=== PATIENT | male | born 1960 | race Caucasian/White ===

== ENCOUNTER 2016-10-02 12:57 | Inpatient (IN) | payer BC, OTHER ==
[~2016-10-02] VITALS: Ht 180.3 cm; Wt 77.1 kg
[2016-10-02] MEDS ORDERED: ONDANSETRON ODT 4 MG TAB.RAPDIS SL PRN (18:30)
[2016-10-02] MEDS ORDERED: ACETAMINOPHEN 325 MG TABLET PO PRN (18:30)
[2016-10-02] MEDS ORDERED: MIRALAX 17 GM POWD.PACK PO PRN (18:30)
[2016-10-02] MEDS ORDERED: ONDANSETRON 4 MG/2 ML VIAL IM PRN (18:30)
[2016-10-02] MEDS ORDERED: MAG HYDROX/AL HYDROX/SIMETH 30 ML LIQUID UDC PO PRN (18:30)
[2016-10-02] MEDS ORDERED: diphenhydrAMINE 50 MG CAPSULE PO PRN (18:30)
[2016-10-02] MEDS ORDERED: LORAZEPAM 2 MG/1 ML VIAL IM PRN (18:30)
[2016-10-02] MEDS ORDERED: HYDROXYZINE PAMOATE 25 MG CAPSULE PO PRN (18:30)
[2016-10-02] MEDS ORDERED: BUPRENORPHINE HCL 2 MG TAB.SUBL SL PRN (18:30)
[2016-10-02] MEDS ORDERED: LORAZEPAM 1 MG TABLET PO PRN ×2 (18:30)
[2016-10-02] MEDS ORDERED: CLONIDINE HCL 0.1 MG TABLET PO PRN (18:30)
[2016-10-02] MEDS ORDERED: LOPERAMIDE HCL 2 MG CAPSULE PO PRN ×2 (18:30)
[2016-10-02 19:00] VITALS: BP 127/71
--- NOTE | 2016-10-02 19:00 | NUR ---
PRE-ADMISSION NOTE VS: BP-127/71 T-97.9 P-107 R-18 PA-0/10 .SpO2 AT 98% IN RA. PATIENT ABLE TO ANSWERS QUESTION APPROPRIATELY. SPEECH IS CLEAR. AMBULATORY AND HAS STEADY GAIT. PATIENT STATES HES NOT ALLERGIC TO ANY MEDICATION OR FOOD. NO SEIZURE HISTORY. PATIENT STATES HES HERE FOR HEROIN IV, METH IV, ETOH , XANAX AND KLONOPIN. DISCUSSED UNIT POLICIES TO PATIENT , NARCOTIC DESTRUCTION, VS CHECK EVERY 4 HOURS AND SMOKING POLICIES. PATIENT VERBALIZED UNDERSTANDING. WILL CONTINUE ADMISSION ON 3RD FLOOR AT ROOM 310.
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
[2016-10-02 19:42] LABS: BASOPHILS # (AUTO) 0.1 K/uL (0.0-8.0); BASOPHILS % (AUTO) 0.6 % (0.0-2.0); EOSINOPHILS # (AUTO) 0.2 K/uL (0.0-0.7); EOSINOPHILS % (AUTO) 2.1 % (0.0-7.0); HEMATOCRIT 33.2 % (40-50); HEMOGLOBIN 10.2 G/DL (14.0-18.0); LYMPHOCYTES # (AUTO) 1.3 K/UL (0.8-4.8); LYMPHOCYTES % (AUTO) 14.1 % (20.5-51.5); MEAN CORPUSCULAR HEMOGLOBIN 20.5 UUG (27.0-31.0); MEAN CORPUSCULAR HGB CONC 31 g/dL (32.0-37.0); MEAN CORPUSCULAR VOLUME 66.8 FL (82.0-92.0); MONOCYTES % (AUTO) 11.7 % (0.0-11.0); NEUTROPHILS # (AUTO) 6.3 K/UL (1.8-8.9); NEUTROPHILS % (AUTO) 71.5 % (38.5-71.5); PLATELET COUNT (AUTO) 479 K/UL (150-450); RED BLOOD CELL COUNT(AUTO) 4.98 MIL/UL (4.7-6.1); WHITE BLOOD COUNT (AUTO) 8.9 K/UL (4.0-11.2)
[2016-10-02 19:47] LABS: ALANINE AMINOTRANSFERASE 24 U/L (16-63); ALKALINE PHOSPHATASE 84 U/L (50-136); AMYLASE 34 U/L (25-115); ASPARTATE AMINOTRANSFERASE 24 U/L (15-37); BILIRUBIN,TOTAL 0.4 mg/dL (0.2-1.0); CARBON DIOXIDE 30 mmol/L (21-32); CHLORIDE 98 mmol/L (98-107); CREATININE 1.1 mg/dL (0.6-1.3); GLUCOSE 104 mg/dL (74-106); MAGNESIUM 1.8 mg/dL (1.8-2.4); TOTAL PROTEIN, SERUM 8.3 g/dL (6.4-8.2); UREA NITROGEN, BLOOD 10 mg/dL (7-18)
[2016-10-02] MEDS ORDERED: THIAMINE HCL 200 MG/2 ML VIAL IM ONE (20:00)
[2016-10-02 20:03] LABS: ETHANOL < 3 MG/DL (0-0)
[2016-10-02 21:28] LABS: *AMPHETAMINE, URINE POSITIVE (NEGATIVE); *BARBITURATE, URINE NEGATIVE (NEGATIVE); *CANNABINOID, URINE NEGATIVE (NEGATIVE); *COCCAINE, URINE NEGATIVE (NEGATIVE); *OPIATE, URINE POSITIVE (NEGATIVE); *PHENCYCLIDINE SCREEN,URINE NEGATIVE (NEGATIVE)
[2016-10-02] MEDS ORDERED: LORAZEPAM 1 MG TABLET PO ONE (21:30)
[2016-10-02] MEDS ORDERED: DOXYCYCLINE HYCLATE 100 MG TABLET ONE (21:46)
[2016-10-02] MEDS ORDERED: LACTOBACILLUS RHAMNOSUS GG 1 EACH CAPSULE ONE (21:46)
[2016-10-02] MEDS: DOXYCYCLINE HYCLATE 100 MG TABLET PO SCH (21:47)
--- NOTE | 2016-10-02 21:47 | NUR ---
THIAMINE INJECTION/ ONE TIME ATIVAN/VIBRAMYCIN AND CULTURELLE ADMINISTRATION PATIENT WAS GIVEN THIAMINE INJECTION ON LEFT DELTOID. PATIENT WAS STARTED ON VIBRAMYCIN AND CULTURELLE.ONE TIME ATIVAN GIVEN PER MURRAY
[2016-10-02] MEDS: LACTOBACILLUS RHAMNOSUS GG 1 EACH CAPSULE PO SCH (21:48)
[2016-10-02] MEDS ORDERED: LORAZEPAM 1 MG TABLET ONE (21:53)
[2016-10-03] VITALS: BP 103/58
[2016-10-03] MEDS ORDERED: LEVO100T10 PO (00:56)
[2016-10-03] MEDS ORDERED: OMEP20TA5 PO (00:56)
[2016-10-03] MEDS ORDERED: ALPR1TAB7 PO (00:56)
[2016-10-03 04:00] VITALS: BP 112/75
--- NOTE | 2016-10-03 07:15 | NUR ---
END OF SHIFT NOTE PATIENT IS A 48 YEAR OLD MALE, ADMITTED FOR OPIATE/BENZO DEPENDENCE. PATIENT IS A 5 DAYS VALIUM AND SUBUTEX TAPER. PATIENTS DRUG OF CHOICE ARE VALIUM, KLONOPIN AND TRAMADOL. PATIENT REPORTS PMH OF TRIGEMINAL NEURALGIA AND DEPRESSION. NO SEIZURE HISTORY. PATIENT OF ANXIETY, PAIN ON JAW/BOTH SHOULDERS 7/10 AND MILD HEADACHE , RESTLESS AND AGITATED. PRN TYLENOL AND ROBAXIN GIVEN. PATIENT ALSO REQUESTED SLEEP AID MEDICATION. PRN SEROQUEL GIVEN. PATIENT NON-COMPLIANT WITH MEDICATIONS, PATIENT REFUSED HIS SUBUTEX, EXPLAINED RISKS/BENEFITS BUT STILL REFUSED. PATIENT REFUSED TO TAKE HIS VALIUM BUT THEN HE CHANGED HIS MIND AND TOOK IT AT 2239. DR. GAO MADE AWARE. ON FALL PRECAUTION. SAFETY MEASURES IN PLACE. CALL LIGHT IN REACH. WILL CONTINUE TO MONITOR. SLEPT 8 HOURS. FLUID INTAKE 500 ML. VOIDED X 2 . BM X 1. LAST COWS 1 AND CIWA 1 . Addendum: 10/03/16 at 0718 by MIGUEL SINGER LVN ERROR : THIS CHARTING IS FOR ANOTHER PATIENT
--- NOTE | 2016-10-03 07:15 | NUR ---
start of shift note SBAR report received. Patient is a 56 year old male admitted to [facility] on 10/02/16 for ETOH, Benzo, Methamphetamine dependence. He has past medical history of Anxiety, ADHD,Panic Attack, GERD, Hypothyroidism, and Hip replacement surgery (10 years ago). Patient has no history of seizures. Patient with multiple abscessed areas with wound consult in place. He was started on antibiotic therapy. This is his first attempt at detox. He is on day 1 of a 5 day Ativan and Subutex taper. Per report from shift coordinator patients last COWS was 2 and CIWA 2. Patient is a full code, on a regular diet and has no known allergies. Patient slept 3 hours per shift coordinator report, currently resting in bed with no complaints offered. Patient with siderails up times 2, bed in lowest position and locked.
--- NOTE | 2016-10-03 07:19 | NUR ---
END OF SHIFT NOTE PATIENT IS A 56 YEAR OLD MALE NEWLY ADMITTED FOR ETOH/BENZO/OPIATE/METH DEPENDENCE. PATIENT WAS PLACED ON 5 DAYS SUBUTEX AND 5 DAYS ATIVAN TAPER. PATIENT COMPLIANT WITH MEDICATION AND TREATMENT PLAN. VS STABLE. PATIENT WAS GIVEN THIAMINE INJECTION ON LEFT DELTOID. ONE TIME ATIVAN GIVEN PER DR. GAO AND WAS STARTED ON ANTIBIOTIC VIBRAMYCIN DUE TO ABSCESSES AND OPEN WOUNDS ON UPPER AND LOWER EXTREMITIES. ENCOURAGE FLUIDS. NO ADVERSE REACTION NOTED. ON FALL/SEIZURE PRECAUTION. SAFETY MEASURES IN PLACE. CALL LIGHT IN REACH. WILL CONTINUE TO MONITOR. PATIENT SLEPT 3 HOURS. FLUID INTAKE 500 ML. VOIDED X 1 . NO BM . LAST COWS 2 AND CIWA 2 .
[2016-10-03 08:00] VITALS: BP 109/59
[2016-10-03] MEDS: BUPRENORPHINE HCL 2 MG TAB.SUBL SL SCH ×4 (09:00→21:00)
[2016-10-03] MEDS ORDERED: TUBERCULIN,PURIF.PROT.DERIV. 5 TU/0.1 ML TEST ID ONE (09:00)
--- NOTE | 2016-10-03 10:04 | NUR ---
Medication Held Subutex held due to COWS of 5 per MD order, Dr Sow aware.
[2016-10-03] MEDS: DOXYCYCLINE HYCLATE 100 MG TABLET PO SCH ×2 (10:10→21:50)
[2016-10-03] MEDS: LORAZEPAM 1 MG TABLET PO SCH ×4 (10:11→21:50)
[2016-10-03] MEDS: FOLIC ACID 1 MG TABLET PO SCH (10:11)
[2016-10-03] MEDS: MULTIVITAMINS,THERAPEUTIC TABLET PO SCH (10:12)
[2016-10-03] MEDS: LACTOBACILLUS RHAMNOSUS GG 1 EACH CAPSULE PO SCH ×2 (10:12→21:50)
[2016-10-03] MEDS: THIAMINE HCL 100 MG TABLET PO SCH (10:12)
[2016-10-03] MEDS: LEVOTHYROXINE SODIUM 100 MCG PO SCH (10:14)
[2016-10-03 12:00] VITALS: BP 114/79
--- NOTE | 2016-10-03 13:52 | NUR ---
Refusal of medication Patient refued 1300 dose of Subutex and Ativan. Patient with COWS of [address] Sow aware. Will continue to monitor.
[2016-10-03 16:00] VITALS: BP 117/76
--- NOTE | 2016-10-03 17:00 | NUR ---
Medication refusal Pt refused ativan and subutex. Will continue to monitor pt. Dr Sow is aware.
--- NOTE | 2016-10-03 19:06 | NUR ---
End of shift note Pt was admitted for ETOH, benzo and opiate dependence. Pt has a PMHx of anxiety, ADHD, panic attacks and GERD. Pt has been refusing his subutex taper, and only took one dose of ativan during the shift. Pt VS are WNL. Pt has a recent COWS of 3 and CIWA of 2. Pt states that he is comfortable. Pt continues on antibiotic therapy for his wounds. Pt has no complaints at this time. Will endorse SBAR to oncoming shift. All needs addressed at this time.
--- NOTE | 2016-10-03 19:30 | NUR ---
START OF SHIFT Pt is a 56 year old male admitted to [facility] on 10/02/16 for ETOH, Benzo, Methamphetamine dependence. PMH of Anxiety, ADHD,Panic Attack, GERD, Hypothyroidism, and Hip replacement surgery (10 years ago). Patient has no history of seizures. Patient with multiple abscessed areas with wound consult in place. Pt is on antibiotic therapy. No A/R noted or reported.Pt is a full code, on a regular diet and has no known allergies. Received in stable codition,all safety measures in place , siderails up times 2, bed in lowest position and locked. Will continue to monitor for safe detox.
[2016-10-03 20:00] VITALS: BP 133/92
--- NOTE | 2016-10-03 22:00 | NUR ---
PT REFUSED TO TAKE SUBUTEX ORDERED,SAID "I DON'T NEED IT".
[2016-10-04] VITALS: BP 126/82
[2016-10-04 04:00] VITALS: BP 125/82
[2016-10-04] MEDS: LEVOTHYROXINE SODIUM 100 MCG PO SCH (06:57)
--- NOTE | 2016-10-04 07:21 | NUR ---
Start of Shift Notes: Received patient in his room. Alert and verbally responsive. Oriented x 4. Able to make his needs known. Respirations even and unlabored. No SOB noted. Skin warm and dry to touch. Abdomen soft and non-distended with (+) BS in all 4 quadrants. No complains of N/V/D or constipation noted. No complains of abdominal cramps noted at this time. Bladder non-distended. No complains of dysuria noted. Voids independently. Ambulatory ad marcelino with steady gait. Alert and verbally responsive. Oriented x 4. Able to make his needs known. Respirations even and unlabored. No SOB noted. Skin warm and dry to touch. Abdomen soft and non-distended with (+) BS in all 4 quadrants. No complains of N/V/D or constipation noted. No complains of abdominal cramps noted at this time. Bladder non-distended. No complains of dysuria noted. Voids independently. Ambulatory ad marcelino with steady gait. Patient is a 56 year old male admitted for EOTH/BZO/METHAMPHETAMINE and OPIATE dependence who was placed on a 5-day Ativan and 5-day Subutex taper as ordered. No adverse reactions noted. NKA. FULL CODE. Regular diet. Has past medical hx of anxiety, ADHD, panic attack, hip replacement, GERD, hypothyroidism and abdominal surgery. Slept for 11 hours. No PRNS given during the night. Last COWS 2/CIWA 1. On fall and seizure precautions. Educated patient on the current plan of care for the day and his medication regimen. Encouraged oral fluid intake and encouraged group participation to learn new skills to prevent relapse. All needs met and attended. Will continue to monitor closely.
--- NOTE | 2016-10-04 07:27 | NUR ---
END OF SHIFT Pt is a 56 year old male admitted to [facility] on 10/02/16 for ETOH, Benzo, Methamphetamine dependence. PMH of Anxiety, ADHD,Panic Attack, GERD, Hypothyroidism, and Hip replacement surgery (10 years ago). Patient has no history of seizures. Patient with multiple abscessed areas ; wound consult ordered,still pending.Pt is on antibiotic therapy. No A/R noted or reported.Pt is a full code, on a regular diet and has no known allergies. Last COWS 2/CIWA 1; Pt slept 11 hrs,fluid intake was 100 mls,no urine voided.No PRN meds given.Pt refused Subutex last night;all safety measures in place , siderails up times 2, bed in lowest position and locked. Will continue to monitor for safe detox.
[2016-10-04 08:00] VITALS: BP 130/82
[2016-10-04] MEDS: BUPRENORPHINE HCL 2 MG TAB.SUBL SL SCH ×3 (08:14→20:52)
[2016-10-04] MEDS: DOXYCYCLINE HYCLATE 100 MG TABLET PO SCH ×2 (08:14→20:52)
[2016-10-04] MEDS: MULTIVITAMINS,THERAPEUTIC TABLET PO SCH (08:14)
[2016-10-04] MEDS: FOLIC ACID 1 MG TABLET PO SCH (08:14)
[2016-10-04] MEDS: LORAZEPAM 1 MG TABLET PO SCH ×3 (08:14→20:53)
[2016-10-04] MEDS: LACTOBACILLUS RHAMNOSUS GG 1 EACH CAPSULE PO SCH ×2 (08:14→20:52)
[2016-10-04] MEDS: THIAMINE HCL 100 MG TABLET PO SCH (08:14)
--- NOTE | 2016-10-04 09:45 | NUR ---
Clinician encouraged the client to attend groups today. Times of groups were given to client. He said he would attend.
[2016-10-04 12:00] VITALS: BP 130/98
[2016-10-04 12:10] LABS: HEPATITIS B SURFACE AG Negative (Negative)
--- NOTE | 2016-10-04 12:30 | NUR ---
Psych MD Visit: Patient seen and examined by Dr. Kapadia with [facility].
[2016-10-04] MEDS: DICYCLOMINE HCL 20 MG TABLET PO SCH ×2 (14:42→20:52)
[2016-10-04 16:00] VITALS: BP 130/88
--- NOTE | 2016-10-04 19:06 | NUR ---
End of Shift Notes: Patient continues to be on 5-day Ativan and 5-day Subutex taper as ordered. No adverse reactions noted. Patient is tolerating taper well. VS monitored q 4 hours. No significant abnormalities noted. Patients withdrawal symptoms were closely monitored. Patients initial COWS 6, CIWA 5, patient presented with anxiety, chills, hot flashes, stomach cramps, muscle aches and pains. Last COWS 3/CIWA 3. Per patient, Subutex and Ativan has been helping him with his withdrawal symptoms. Compliant with care and treatment. Requires encouragement to participate in group and activities. All needs met and attended. Will continue to monitor closely.
--- NOTE | 2016-10-04 19:30 | NUR ---
START OF SHIFT Pt is a 56 year old male admitted to [facility] on 10/02/16 for ETOH, Benzo, Methamphetamine and Opiate dependency. PMH of Anxiety, ADHD,Panic Attack, GERD, Hypothyroidism,Hip replacement surgery (10 years ago) and abdominal surgery.No HX of seizures.On ATB therapy for wounds on upper and lower extremities.No A/R noted.Pt continues to be on Ativan and Subutex taper as ordered,tolerating well.Last COWS 3/CIWA 3.Pt has NKA,on regular diet,full code status.All safety measures in place ,bed is locked in lowest position,side rails up x 2;will continue to monitor.
[2016-10-04 20:33] VITALS: BP 130/91
[2016-10-05] VITALS: BP 138/90
--- NOTE | 2016-10-05 | NUR ---
PT REFUSED V/S.JESI/ABBI DEFERRED. PT SLEEPING COMFORTABLY IN BED,BREATHING IS EVEN AND NON LABORED.DID NOT WANT TO BE WOKEN UP AT 0400 FOR V/S. KIRSTIE DEFERRED. Addendum: 10/05/16 at 0450 by KEYA KOHLI RN NOTE ENTERED FOR 0400.
--- NOTE | 2016-10-05 06:40 | NUR ---
END OF SHIFT Pt is a 56 year old male admitted to [facility] on 10/02/16 for ETOH, Benzo, Methamphetamine and Opiate dependency. PMH of Anxiety, ADHD,Panic Attack, GERD, Hypothyroidism,Hip replacement surgery (10 years ago) and abdominal surgery.No HX of seizures.On ATB therapy for wounds on upper and lower extremities.No A/R noted.Pt continues to be on Ativan and Subutex taper as ordered,tolerating well.Last COWS 1/CIWA 2.Pt has NKA,on regular diet,full code status.No PRN meds given.Pt slept 10 hrs; fluid intake was 1153 mls; voided x 3.All safety measures in place ,bed is locked in lowest position,side rails up x 2;will continue to monitor.
[2016-10-05] MEDS: LEVOTHYROXINE SODIUM 100 MCG TABLET PO SCH (07:24)
--- NOTE | 2016-10-05 07:28 | NUR ---
BEGINNING OF SHIFT Patient endorsement report received from night clerk auditor nurse, all pertinent information discussed. Patient is a 56 year old male admitted for EOTH/BZO/METHAMPHETAMINE and OPIATE dependence who was placed on a 5-day Ativan and 5-day Subutex taper as ordered. No adverse reactions noted. NKA. FULL CODE. Regular diet. Has past medical hx of anxiety, ADHD, panic attack, hip replacement, GERD, hypothyroidism and abdominal surgery. Patient with substance use history of: etoh 1/2 pint daily for 2 years, xanax 0.5mg every other day for 5 years, klonopin 1 mg daily for 5 years, heroin iv 0.5 gram daily for 18 months, methamphetamine 0.25mg daily for 3 months. Per night clerk auditor patient received no PRN medications, Slept for 10 hours. No PRNS given during the night. Last COWS 1/CIWA 2. On fall and seizure precautions. Educated patient on the current plan of care for the day and his medication regimen. Safety measures in place. call light kept with in reach, will continue to monitor.
[2016-10-05 08:03] VITALS: BP 125/84
[2016-10-05] MEDS: DICYCLOMINE HCL 20 MG TABLET PO SCH ×3 (08:47→20:09)
[2016-10-05] MEDS: LORAZEPAM 1 MG TABLET PO SCH ×4 (08:47→20:09)
[2016-10-05] MEDS: FOLIC ACID 1 MG TABLET PO SCH (08:47)
[2016-10-05] MEDS: THIAMINE HCL 100 MG TABLET PO SCH (08:47)
[2016-10-05] MEDS: LACTOBACILLUS RHAMNOSUS GG 1 EACH CAPSULE PO SCH ×2 (08:47→20:09)
[2016-10-05] MEDS: MULTIVITAMINS,THERAPEUTIC TABLET PO SCH (08:48)
[2016-10-05] MEDS: DOXYCYCLINE HYCLATE 100 MG TABLET PO SCH ×2 (08:48→20:10)
[2016-10-05] MEDS ORDERED: BUPRENORPHINE HCL 2 MG TAB.SUBL SL SCH (09:00)
[2016-10-05 13:17] VITALS: BP 138/96
[2016-10-05] MEDS: BUPRENORPHINE HCL 2 MG TAB.SUBL SL SCH ×2 (14:01→20:10)
[2016-10-05 17:00] VITALS: BP 128/73
--- NOTE | 2016-10-05 18:53 | NUR ---
BEGINNING OF SHIFT Patient alert and oriented x4, vital signs stable during shift. Patient compliant with therapeutic plan of care during shift. Patient is a 56 year old male admitted for ETOH/BZO/METHAMPHETAMINE and OPIATE dependence who was placed on a 5-day Ativan and 5-day Subutex taper as ordered. No adverse reactions noted. NKA. FULL CODE. Regular diet. Has past medical hx of anxiety, ADHD, panic attack, hip replacement, GERD, hypothyroidism and abdominal surgery. Patient with substance use history of: etoh 1/2 pint daily for 2 years, Xanax 0.5mg every other day for 5 years, Klonopin 1 mg daily for 5 years, heroin iv 0.5 gram daily for 18 months, methamphetamine 0.25mg daily for 3 months. patient continues on a 5 day Subutex and 5 day Ativan taper as ordered, well tolerated, no ASE noted. Detox medication effective at reducing withdrawal symptoms. Encouraged adequate PO fluid intake as tolerated. 0900 assessment patient presented with: heart rate of 86, restlessness, mild bone and joint aches, yawning, mild anxiety and barely sweating with cow score of: 5 and ciwa score of: 3; 1300 assessment patient presented with: heart rate of 91, restlessness, mild bone and joint aches, yawning, mild anxiety and barely sweating with cow score of: 5 and ciwa score of: 3; 1700 assessment patient presented with: heart rate of 92, mild bone and joint aches, and mild anxiety with cow score of: 3 and ciwa score of: 1. Patient also continues on doxycycline ATB for abscess on BUE and BLE, Well tolerated, no ASE noted. patient afebrile during shift. Encouraged to attend group therapies/sessions to learn new coping skills to prevent relapse. Safety measures i place, call light kept with in reach. Patient endorsed to overnight houseperson nurse, all pertinent information discussed. Addendum: 10/05/16 at 1901 by DAVID DIETZ APICULTURE TEACHER INCORRECT: CLARIFICATION: NOTE ABOVE IS "END OF SHIFT"
[2016-10-05 20:00] VITALS: BP 140/96
--- NOTE | 2016-10-05 20:00 | NUR ---
2000 Patient received sleeping comfortably. Aroused easily for vital signs and nurse assess. Patient responds to nurse's greeting and introduction with very brief eye contact and flat, "Hi, I'm okay". Patient is oriented to person, place, day, date and his personal situation. Reoriented to time. Patient's color is pink and his skin is warm, dry and intact. Patient's overall appearance is disheveled. Various-sized, slightly reddened, intact lumps noted under the skin on bilateral arms and few tiny intact slightly reddened areas noted on Left leg. Patient denies any pain and voices no requests for anything at this time. Patient states that he has been eating his regular diet trays and taking various fluids ad marcelino with no gastric issues. Vital signs are: 97.8-97-18 140/96, O2 Sat 99%, COWS 3, CIWA 1. Patient states that he does attend [facility] groups as regularly he he is able, however he did not attend PM group tonight. Patient was admitted on 10/02/16 for: Alcohol, Xanax, Klonopin, Heroin and Methamphetamine withdrawal and he is currently on a 5-Day Ativan medication taper and a 5-Day Subutex medication taper, for withdrawal symptoms, and he is apparently tolerating this medications well so far. Bed is locked and in lowest position, bed rails are up X 2 and call light within patients easy reach.
[2016-10-05] MEDS: IBUPROFEN 400 MG TABLET PO PRN (20:13)
--- NOTE | 2016-10-05 20:13 | NUR ---
PRN MEDICATIONS: Prn Motrin 400 mg p.o. given per request for c/o back pain, 3-4/10 pain scale.
--- NOTE | 2016-10-05 21:13 | NUR ---
REASSESSMENT PRN Medication: Patient is sleeping soundly with eyes closed and respirations quiet, even, deep at 12.
[2016-10-06] VITALS: BP 136/99
--- NOTE | 2016-10-06 04:00 | NUR ---
Patient refused to be awakened for V/S to be done at this time.
--- NOTE | 2016-10-06 06:30 | NUR ---
0630 Patient slept a total of 10.5 hours and he had 1 voids and no stools. Total intake was 355 ml p.o. Prn Medication given noted separately per floor protocol. V/SS afebrile, last COWS 2, last CIWA 1 at 0000. Patient is presently sleeping comfortably in stable condition with eyes closed and respirations quiet, even, unlabored at 12.
[2016-10-06] MEDS: LEVOTHYROXINE SODIUM 100 MCG TABLET PO SCH (06:49)
--- NOTE | 2016-10-06 07:18 | NUR ---
BEGINNING OF SHIFT Patient endorsement report received from dress marker nurse, all pertinent information discussed. Patient is a 56 year old male admitted for EOTH/BZO/METHAMPHETAMINE and OPIATE dependence who was placed on a 5-day Ativan and 5-day Subutex taper as ordered. No adverse reactions noted. NKA. FULL CODE. Regular diet. Has past medical hx of anxiety, ADHD, panic attack, hip replacement, GERD, hypothyroidism and abdominal surgery. Patient with substance use history of: etoh 1/2 pint daily for 2 years, xanax 0.5mg every other day for 5 years, klonopin 1 mg daily for 5 years, heroin iv 0.5 gram daily for 18 months, methamphetamine 0.25mg daily for 3 months. Per dress marker patient received PRN: motrin during dress marker, medication effective as per dress marker. Slept for 11 hours. Last COWS 2/CIWA 1. On fall and seizure precautions. Educated patient on the current plan of care for the day and his medication regimen. Safety measures in place. call light kept with in reach, will continue to monitor.
[2016-10-06 08:05] VITALS: BP 149/98
[2016-10-06] MEDS: DOXYCYCLINE HYCLATE 100 MG TABLET PO SCH ×2 (08:22→20:23)
[2016-10-06] MEDS: FOLIC ACID 1 MG TABLET PO SCH (08:22)
[2016-10-06] MEDS: MULTIVITAMINS,THERAPEUTIC TABLET PO SCH (08:22)
[2016-10-06] MEDS: DICYCLOMINE HCL 20 MG TABLET PO SCH ×3 (08:23→20:23)
[2016-10-06] MEDS: LORAZEPAM 1 MG TABLET PO SCH ×3 (08:23→20:22)
[2016-10-06] MEDS: BUPRENORPHINE HCL 2 MG TAB.SUBL SL SCH ×3 (08:23→20:23)
[2016-10-06] MEDS: THIAMINE HCL 100 MG TABLET PO SCH (08:23)
[2016-10-06] MEDS: LACTOBACILLUS RHAMNOSUS GG 1 EACH CAPSULE PO SCH ×2 (08:23→20:23)
--- NOTE | 2016-10-06 11:50 | NUR ---
LIYAH GILLESPIE Patient c/o muscle aches and back pain 09/07, provided with non pharmacological interventions with no relief, administered Robaxin as ordered, will monitor effectiveness of medication. Addendum: 10/06/16 at 1921 by DAVID DIETZ LVN INCORRECT PATIENT DISREGARD NOTE ABOVE
[2016-10-06 13:18] VITALS: BP 107/70
[2016-10-06] MEDS: IBUPROFEN 400 MG TABLET PO PRN ×2 (14:51→20:26)
--- NOTE | 2016-10-06 14:51 | NUR ---
PRN MOTRIN Patient c/o back pain 08/08, provided with non pharmacological interventions with no relief, administered Motrin as ordered, will monitor effectiveness of medication. safety measures in place.
--- NOTE | 2016-10-06 15:51 | NUR ---
MOTRIN REASSESSMENT Patient reports medication effective, current pain level is 0/10, will continue to monitor.
--- NOTE | 2016-10-06 16:01 | NUR ---
Therapist prompted client to attend daily group sessions, and client stated that he was willing to go but when he was feeling better.
--- NOTE | 2016-10-06 17:02 | NUR ---
PRN CLONIDINE Patients blood pressure: 161/101 heart rate 80, administered clonidine as ordered, will monitor closely.
[2016-10-06 17:20] VITALS: BP 160/102
--- NOTE | 2016-10-06 18:02 | NUR ---
CLONIDINE REASSESSMENT Patients blood pressure decrease current bp: 155/88 heart rate: 77, will continue to monitor.
--- NOTE | 2016-10-06 18:51 | NUR ---
END OF SHIFT Patient alert and oriented x4, vital signs stable during shift. Patient compliant with therapeutic plan of care during shift. Patient is a 56 year old male admitted for ETOH/BZO/METHAMPHETAMINE and OPIATE dependence who was placed on a 5-day Ativan and 5-day Subutex taper as ordered. No adverse reactions noted. NKA. FULL CODE. Regular diet. Has past medical hx of anxiety, ADHD, panic attack, hip replacement, GERD, hypothyroidism and abdominal surgery. Patient with substance use history of: etoh 1/2 pint daily for 2 years, Xanax 0.5mg every other day for 5 years, Klonopin 1 mg daily for 5 years, heroin iv 0.5 gram daily for 18 months, methamphetamine 0.25mg daily for 3 months. patient continues on a 5 day Subutex and 5 day Ativan taper as ordered, well tolerated, no ASE noted. Detox medication effective at reducing withdrawal symptoms. Encouraged adequate PO fluid intake as tolerated. 0900 assessment patient presented with: Heart rate of 100, mild bone and joint aches, yawning, mild anxiety and mild agitation with cow score of: 4 and ciwa score of: 2; 1300 assessment patient presented with: heart rate of 83, mild bone and joint aches, and mild anxiety with cow score of: 3 and ciwa score of: 1; 1700 assessment patient presented with: mild bone and joint aches, mild anxiety with cow score of: 2 and ciwa score of: 1.Patient received PRN: Motrin and clonidine during shift, medication effective. Patient also continues on doxycycline ATB for abscess on BUE and BLE, Well tolerated, no ASE noted. patient afebrile during shift. Encouraged to attend group therapies/sessions to learn new coping skills to prevent relapse. Safety measures i place, call light kept with in reach. Patient endorsed to night worker nurse, all pertinent information discussed.
--- NOTE | 2016-10-06 19:25 | NUR ---
1924 Patient received resting quietly. Aroused easily for nurse assess and vital signs. Patient responds to nurse's greeting with eyes closed and, "Hi, I'm feel okay". Patient is oriented to person, place, day, date and his personal situation. Reoriented to time. Patient's color is tannish-pink and his skin is arm, dry and intact. Patient's overall appearance is disheveled. Numerous,mostly small but various-sized, intact lumps underneath his skin on bilateral arms and right leg noted. Patient states, "That disposable hot pack they put to my right leg isn't really helpful". Patient denies any pain at this time and he voices no requests for anything. Patient states further that he has been eating his regular diet trays and taking various fluids ad marcelino with no gastric issues. Patient states that he has been attending [facility] groups, though he did not feel like attending PM group tonight. Vital signs are: 97.4-84-14 134/90, O2 Sat 99% COWS, 2 CIWA 1 . Patient was admitted on 10/02/16 for: Alcohol, Xanax, Klonopin, Heroin and Methamphetamine withdrawal and he is currently on a 5-Day Subutex medication taper and 5-Day Ativan medication taper, both of which he has been apparently tolerating well. Patient is verbally appropriate and cooperative when interacting with nurse, though he keeps his eyes mostly closed and answers assess questions in short, somewhat impatient manner. Bed is locked and in lowest position, bed rails are up X 2 and call light within patient's easy reach.
[2016-10-06 20:00] VITALS: BP 134/90
--- NOTE | 2016-10-07 | NUR ---
Patient refused to be awakened for vital signs to be done at this time.
[2016-10-07] MEDS: IBUPROFEN 400 MG TABLET PO PRN ×2 (03:00→20:52)
--- NOTE | 2016-10-07 03:00 | NUR ---
PRN MEDICATION: Prn Motrin 400 mg p.o. given for c/o headache, 7/10 pain scale.
--- NOTE | 2016-10-07 03:50 | NUR ---
REASSESSMENT PRN MEDICATION: Patient is sleeping soundly with eyes closed and respirations quiet, deep, even, unlabored at 12.
--- NOTE | 2016-10-07 04:00 | NUR ---
Patient refused to be awakened for vital signs to be done at this time
--- NOTE | 2016-10-07 06:30 | NUR ---
0630 Patient slept a total of 8 hours and he had 2 voids and no stools. Total intake was 795 ml p.o. Prn medication given noted separately per floor protocol. V/SS afebrile, last COWS 2, last CIWA 1 at 1999. Patient is presently sleeping comfortably in stable condition with eyes closed and respirations quiet, even, unlabored at 12.
[2016-10-07] MEDS: LEVOTHYROXINE SODIUM 100 MCG TABLET PO SCH (06:34)
--- NOTE | 2016-10-07 07:05 | NUR ---
Start Of Shift Patient Received from retail shift supervisor nurse. Patient is a 56 year old male admitted for ETOH/BZO/METHAMPHETAMINE and OPIATE dependence under the care of Dr. Sow. Pt is full code regular diet on fall and seizure precautions denies any food or drug allergies. Pt placed on a 5-day Ativan and 5-day Subutex taper as ordered. PMH of anxiety, ADHD, panic attack, hip replacement, GERD, hypothyroidism and abdominal surgery. Encouraged adequate PO fluid intake as tolerated. Treatment plan tolerated well by the patient as evidenced by pt's last CIWA score of 1 and COWS score of 2 which was taken at 0400. Pt received PRN Motrin last night which was effective per retail shift supervisor nurse. Pt is currently in his room laying in bed watching TV. All safety measures in place per hospital policy. Bed in lowest position, side rails up x2, call-light within reach. Will continue to monitor and provide support.
[2016-10-07 08:00] VITALS: BP 127/82
[2016-10-07] MEDS: DOXYCYCLINE HYCLATE 100 MG TABLET PO SCH ×2 (08:57→20:52)
[2016-10-07] MEDS: LORAZEPAM 1 MG TABLET PO SCH ×2 (08:58→20:52)
[2016-10-07] MEDS: THIAMINE HCL 100 MG TABLET PO SCH (08:58)
[2016-10-07] MEDS: BUPRENORPHINE HCL 2 MG TAB.SUBL SL SCH ×2 (08:58→20:53)
[2016-10-07] MEDS: LACTOBACILLUS RHAMNOSUS GG 1 EACH CAPSULE PO SCH ×2 (08:58→20:52)
[2016-10-07] MEDS: FOLIC ACID 1 MG TABLET PO SCH (08:58)
[2016-10-07] MEDS: DICYCLOMINE HCL 20 MG TABLET PO SCH ×3 (08:58→20:52)
[2016-10-07] MEDS: MULTIVITAMINS,THERAPEUTIC TABLET PO SCH (08:58)
[2016-10-07] MEDS ORDERED: BUPRENORPHINE HCL 2 MG TAB.SUBL SL SCH (09:00)
[2016-10-07 12:00] VITALS: BP 133/86
[2016-10-07 16:00] VITALS: BP 126/77
--- NOTE | 2016-10-07 19:10 | NUR ---
End Of Shift Report given. Patient is a 56 year old male admitted for ETOH /BNZ/methamphetamine and OPIATE dependence under the care of Dr. Sow. Pt is full code regular diet on fall and seizure precautions denies any food or drug allergies. Pt placed on a 5-day Ativan and 5-day Subutex taper as ordered. VS monitored closely q 4 hours. Withdrawal symptoms were closely monitored. Initial CIWA 6 COWS 6. Patient encouraged adequate PO fluid intake as tolerated. Patient presented with sweats and anxiety during the day. Last CIWA 3 COWS 3. Per patient, Ativan and Subutex have been helping him with his withdrawal symptoms. Pt ate all of his meals. Pt did not receive any PRN medications. Patient encouraged to attend group therapies/sessions to learn new coping skills to recent relapse, patient denies SI/HI. Participated in group and therapy sessions. All needs met and attended.
[2016-10-07 20:00] VITALS: BP 117/74
--- NOTE | 2016-10-07 20:00 | NUR ---
START OF SHIFT NOTE PATIENT IN HIS ROOM, WATCHING TV. PATIENT ALERT AND ORIENTED X 4. RESPIRATION EVEN AND UNLABORED. PATIENT REPORTS ANXIETY BUT STATES THAT MEDICATIONS ARE WORKING WELL IN CONTROLLING HIS WITHDRAWAL SYMPTOMS. RECEIVED REPORT FROM DAY SHIFT NURSE. PATIENT IS A 56 YEAR OLD MALE ADMITTED FOR ETOH/BENZO/OPIATE/METH DEPENDENCE. PATIENT IS ON 5TH DAY OF HIS 5 DAYS SUBUTEX TAPER AND 5 DAYS ATIVAN TAPER. PATIENT REPORTS NO SEIZURE HISTORY. PATIENT'S DRUG OF CHOICE ARE ETOH. XANAX, KLONOPIN, HEROIN IV AND METH IV. PATIENT IS ON ANTIBIOTIC FOR ABSCESSES AND OPEN WOUNDS. PATIENT DID NOT REQUIRE ANY PRN MEDICATION. LAST COWS 3 AND CIWA 3. ON FALL/SEIZURE PRECAUTION. SAFETY MEASURES IN PLACE. CALL LIGHT IN REACH. WILL CONTINUE TO MONITOR.
--- NOTE | 2016-10-07 20:52 | NUR ---
PRN MOTRIN ADMINISTRATION PATIENT C/O BACK PAIN 06/08. PRN MOTRIN GIVEN. WILL MONITOR FOR EFFECTIVENESS
--- NOTE | 2016-10-07 21:52 | NUR ---
PRN MOTRIN RE-ASSESSMENT PATIENT STATES MOTRIN IS HELPFUL. PATIENT STATES NO PAIN AT THIS TIME.
[2016-10-08] VITALS: BP 136/84
[2016-10-08 04:00] VITALS: BP 136/84
[2016-10-08] MEDS: LEVOTHYROXINE SODIUM 100 MCG TABLET PO SCH (06:50)
--- NOTE | 2016-10-08 07:17 | NUR ---
END OF SHIFT NOTE PATIENT REMAIN ALERT AND ORIENTED X 4. RESPIRATION EVEN AND UNLABORED. PATIENT REPORTED ANXIETY BEGINNING OF SHIFT AND STATES THAT MEDICATIONS ARE WORKING WELL IN CONTROLLING HIS WITHDRAWAL SYMPTOMS. PATIENT IS A 56 YEAR OLD MALE ADMITTED FOR ETOH/BENZO/OPIATE/METH DEPENDENCE. PATIENT IS ON 5TH DAY OF HIS 5 DAYS SUBUTEX TAPER, TOLERATED WELL. NO ADVERSE REACTION . PATIENT REPORTS NO SEIZURE HISTORY. PATIENT'S DRUG OF CHOICE ARE ETOH. XANAX, KLONOPIN, HEROIN IV AND METH IV. PATIENT IS ON ANTIBIOTIC FOR ABSCESSES AND OPEN WOUNDS. PATIENT WAS GIVEN PRN MOTRIN FOR BACK PAIN AT 2051 . PATIENT COMPLIANT WITH MEDICATIONS AND TREATMENT PLAN. PATIENT IN ROOM MOST OF THE SHIFT. ON FALL/SEIZURE PRECAUTION. SAFETY MEASURES IN PLACE. CALL LIGHT IN REACH. WILL CONTINUE TO MONITOR. SLEPT 7 HOURS. FLUID INTAKE 1,328 ML. VOIDED X 3 . NO BM. LAST COWS 1 AND CIWA 1 .
--- NOTE | 2016-10-08 07:30 | NUR ---
START OF SHIFT Pt is a 56 yr old male, AA&Ox4. Pt was admitted on 10/02/16 for ETOH/Opiate/Benzo Dependence and has completed 5 day Ativan taper and will complete 5 day Subutex taper today on 10/08/16. Pt received Motrin PRN during the night for pain. Medication was effective. Pt slept for 7 hrs during the night. Last COWS/CIWA was 1. Pt is cooperative with care. Pt denies any anxiety or agitation at this time. Skin is warm and dry to touch. Pt is on Vibramycin for skin abscess on BUE and BLE. No adverse reaction noted. Encouraged increase fluid intake. No tremors seen or felt. Safety precautions are observed. Call light is within reach. Will continue to monitor.
[2016-10-08 08:11] VITALS: BP 122/82
[2016-10-08] MEDS: LACTOBACILLUS RHAMNOSUS GG 1 EACH CAPSULE PO SCH ×2 (08:57→21:38)
[2016-10-08] MEDS: THIAMINE HCL 100 MG TABLET PO SCH (08:58)
[2016-10-08] MEDS: FOLIC ACID 1 MG TABLET PO SCH (08:58)
[2016-10-08] MEDS: DICYCLOMINE HCL 20 MG TABLET PO SCH ×3 (08:58→21:38)
[2016-10-08] MEDS: DOXYCYCLINE HYCLATE 100 MG TABLET PO SCH ×2 (08:58→21:38)
[2016-10-08] MEDS: MULTIVITAMINS,THERAPEUTIC TABLET PO SCH (08:58)
[2016-10-08] MEDS ORDERED: BUPRENORPHINE HCL 2 MG TAB.SUBL SL SCH (09:00)
[2016-10-08] MEDS: METHOCARBAMOL 750 MG TABLET PO PRN ×2 (09:02→21:38)
[2016-10-08] MEDS: IBUPROFEN 400 MG TABLET PO PRN ×2 (09:02→14:40)
--- NOTE | 2016-10-08 09:02 | NUR ---
PRN MEDICATION GIVEN Pt c/o headache 07/08. Facial grimacing is observed. Motrin 400mg PRN and Robaxin 750mg PO PRN was given as ordered. Encouraged increase fluid intake. Will continue to monitor.
--- NOTE | 2016-10-08 10:10 | NUR ---
PRN RE-ASSESSMENT Robaxin PRN and Motrin PRN was effective. Pt continues to c/o mild headache 04/10 but is able to tolerate pain. Encouraged increase fluid intake.
[2016-10-08 12:30] VITALS: BP 128/74
[2016-10-08 14:23] LABS: *AMPHETAMINE, URINE POSITIVE (NEGATIVE); *BARBITURATE, URINE NEGATIVE (NEGATIVE); *CANNABINOID, URINE NEGATIVE (NEGATIVE); *COCCAINE, URINE NEGATIVE (NEGATIVE); *OPIATE, URINE NEGATIVE (NEGATIVE); *PHENCYCLIDINE SCREEN,URINE NEGATIVE (NEGATIVE)
--- NOTE | 2016-10-08 14:29 | NUR ---
Therapist encouraged client to attend daily group therapy sessions. Client stated that he would consider attending.
--- NOTE | 2016-10-08 14:40 | NUR ---
PRN GIVEN Pt c/o headache 06/08. Motrin 400mg PO PRN was given as ordered. Encouraged increase fluid intake. Will continue to monitor.
[2016-10-08 16:30] VITALS: BP 116/73
--- NOTE | 2016-10-08 19:30 | NUR ---
END OF SHIFT Pt is a 56 yr old male, AA&Ox4. Pt was admitted on 10/02/16 for ETOH/Opiate/Benzo Dependence and has completed 5 day Ativan/Subutex taper as ordered. Medication clemencia well. Pt has been cooperative with medication regimen. Pt was encouraged to attended group sessions but refused to attended. Pt received Motrin PRN at 0902 and at 1440 and Robaxin PRN at 0902 for headache. Medication was effective. Last COWS was 1 and CIWA score was 2 at 1600. Pt denies any anxiety or agitation at this time. Skin is warm and dry to touch. Pt is on Vibramycin for skin abscess on BUE and RLE. No adverse reaction noted. Encouraged increase fluid intake. Pt is to be discharged tomorrow on 10/09/16 to [facility]. Urine drug screen is complete. Safety precautions are observed. Call light is within reach.
[2016-10-08 20:00] VITALS: BP 108/73
--- NOTE | 2016-10-08 20:00 | NUR ---
START OF SHIFT NOTE RECEIVED REPORT FROM DAY SHIFT NURSE. PATIENT IS A 56 YEAR OLD MALE ADMITTED FOR ETOH/BENZO/OPIATE/METH DEPENDENCE. PATIENT COMPLETED 5 DAYS ATIVAN AND 5 DAYS SUBUTEX TAPER. PATIENT IS MEDICALLY CLEARED TO BE DISCHARGED TOMORROW. PATIENT CONTINUE ON ANTIBIOTIC VIBRAMYCIN WITH NO ADVERSE REACTION. PATIENT WAS GIVEN PRN MOTRIN X2 AND ROBAXIN. ON FALL/SEIZURE PRECAUTION. SAFETY MEASURES IN PLACE. CALL LIGHT IN REACH. WILL CONTINUE TO MONITOR.
--- NOTE | 2016-10-08 21:38 | NUR ---
PRN ROBAXIN AND BENADRYL ADMINISTRATION PATIENT C/O BACK PAIN 07/08 AND REQUESTS FOR SLEEP AID. PRN ROBAXIN AND BENADRYL GIVEN. WILL MONITOR FOR EFFECTIVENESS
--- NOTE | 2016-10-08 22:38 | NUR ---
PRN ROBAXIN RE-ASSESSMENT PATIENT STATES NO PAIN AT THIS TIME. ROBAXIN HELPFUL AND EFFECTIVE. WILL CONTINUE TO MONITOR
--- NOTE | 2016-10-08 23:00 | NUR ---
LIYAH LEDBETTER RE-ASSESSMENT PATIENT IN BED WITH HIS EYES CLOSED. RESPIRATION EVEN AND UNLABORED. SAFETY MEASURES IN PLACE. CALL LIGHT IN REACH. WILL CONTINUE TO MONITOR
--- NOTE | 2016-10-09 | NUR ---
COWS/CIWA/VS PATIENT ASLEEP AT THIS TIME. COWS AND CIWA UNABLE TO ASSESS. RESPIRATION EVEN AND UNLABORED. RR 15. SAFETY MEASURES IN PLACE. CALL LIGHT IN REACH. WILL CONTINUE TO MONITOR
[2016-10-09] MEDS: LEVOTHYROXINE SODIUM 100 MCG TABLET PO SCH (06:53)
--- NOTE | 2016-10-09 07:03 | NUR ---
END OF SHIFT NOTE PATIENT COMPLIANT WITH MEDICATION AND TREATMENT PLAN. PATIENT COMPLETED 5 DAYS ATIVAN AND 5 DAYS SUBUTEX TAPER. PATIENT IS MEDICALLY CLEARED TO BE DISCHARGED TODAY. PATIENT CONTINUE ON ANTIBIOTIC VIBRAMYCIN WITH NO ADVERSE REACTION. PATIENT WAS GIVEN ROBAXIN FOR BACK PAIN. ON FALL/SEIZURE PRECAUTION. SAFETY MEASURES IN PLACE. CALL LIGHT IN REACH. WILL CONTINUE TO MONITOR. SLEPT 8 HOURS. FLUID INTAKE 1,595 ML. VOIDED X 2. NO BM. LAST COWS 2 AND CIWA 2 .
--- NOTE | 2016-10-09 07:42 | NUR ---
START OF SHIFT NOTE Received patient this Am Aox4.Patient scheduled for discharge today. patient reports readiness for discharge. He states he just feels tired this morning. Taper complete. PRn Robaxin given per shift mechanic and he slept 8 hours. COWS 2 CIWA 2 per night nurse. Vitals stable. Will discharge pt this shift as ordered.
[2016-10-09] MEDS ORDERED: CLON0.1T14 PO (07:43)
[2016-10-09] MEDS ORDERED: METH-406 PO (07:43)
[2016-10-09] MEDS ORDERED: LACT1CAP57 PO (07:43)
[2016-10-09] MEDS ORDERED: DICY20TA28 PO (07:43)
[2016-10-09 08:00] VITALS: BP 125/86
[2016-10-09] MEDS: DICYCLOMINE HCL 20 MG TABLET PO SCH (08:17)
[2016-10-09] MEDS: LACTOBACILLUS RHAMNOSUS GG 1 EACH CAPSULE PO SCH (08:18)
[2016-10-09] MEDS: THIAMINE HCL 100 MG TABLET PO SCH (08:18)
[2016-10-09] MEDS: FOLIC ACID 1 MG TABLET PO SCH (08:18)
[2016-10-09] MEDS: MULTIVITAMINS,THERAPEUTIC TABLET PO SCH (08:18)
[2016-10-09] MEDS: DOXYCYCLINE HYCLATE 100 MG TABLET PO SCH (08:18)
--- NOTE | 2016-10-09 10:33 | NUR ---
DISCHARGE NOTE Patient is in stable condition. Vitals WNL. patient AOx4. Skin intact, pt denies SI or HI. All discharge paperwork completed, dated, signed. patient educated about discharge instructions, what to do after discharge, and when to contact MD. Patient verbalized understanding. Patient's last CIWA 1 COWS 1. Patient was discharged from [facility] on 10/09/16 at 1018. Pt left building with all belongings, meds, prescriptions, and was assisted to lobby by SALES & SERVICE ASSOCIATE. patient picked up by [employer] transportation. MD has been notified of patient discharge.
== END 2016-10-09 10:18 | disposition other institution (70) | DRG 895 ==
LOC: SRC 18:07
PROVIDERS: ADMIT Internal Medicine; ATTEND Internal Medicine
PROC: HZ2ZZZZ Detoxification Services for Substance Abuse Treatment (ICD-10-PCS; principal; 2016-10-02)
PROC: HZ31ZZZ Individual Counseling for Substance Abuse Treatment, Behavioral (ICD-10-PCS; 2016-10-04)
PROC: HZ41ZZZ Group Counseling for Substance Abuse Treatment, Behavioral (ICD-10-PCS; 2016-10-05)
DX: F10.230 Alcohol dependence with withdrawal, uncomplicated (principal); L03.114 Cellulitis of left upper limb; L03.113 Cellulitis of right upper limb; L02.414 Cutaneous abscess of left upper limb; L02.413 Cutaneous abscess of right upper limb; L02.415 Cutaneous abscess of right lower limb; E87.1 Hypo-osmolality and hyponatremia; E46 Unspecified protein-calorie malnutrition; F11.23 Opioid dependence with withdrawal; Y90.9 Presence of alcohol in blood, level not specified; E03.9 Hypothyroidism, unspecified; G47.00 Insomnia, unspecified; F90.9 Attention-deficit hyperactivity disorder, unspecified type; S41.132S Puncture wound without foreign body of left upper arm, sequela; S41.131S Puncture wound without foreign body of right upper arm, sequela; X78.8XXS Intentional self-harm by other sharp object, sequela; G89.29 Other chronic pain; M54.5 Low back pain; Z80.3 Family history of malignant neoplasm of breast; Z82.49 Family history of ischemic heart disease and other diseases of the circulatory system; Z80.0 Family history of malignant neoplasm of digestive organs; Z96.649 Presence of unspecified artificial hip joint; Z59.1 Inadequate housing; Z81.1 Family history of alcohol abuse and dependence; D50.9 Iron deficiency anemia, unspecified; Z68.23 Body mass index [BMI] 23.0-23.9, adult; F14.10 Cocaine abuse, uncomplicated; F12.90 Cannabis use, unspecified, uncomplicated; F13.10 Sedative, hypnotic or anxiolytic abuse, uncomplicated; E86.1 Hypovolemia; F17.210 Nicotine dependence, cigarettes, uncomplicated; F15.10 Other stimulant abuse, uncomplicated
CPT/HCPCS: 36415; 70030-TC; 80307; 80324; 80346; 80361; 83735; 85025; 86580; 86592; 86705; 86803; 87340; 87806; G0480; J3411; Q0163

== ENCOUNTER 2018-03-05 11:28 | Inpatient (IN) | payer BC, OTHER ==
[~2018-03-05] VITALS: Ht 180.3 cm; Wt 63.5 kg
[~2018-03-05 11:28] MED LIST: CLON0.1T14 PO; DICY20TA28 PO; LACT1CAP57 PO; LEVO100T10 PO; METH-406 PO; OMEP20TA5 PO
--- NOTE | 2018-03-05 12:30 | NUR ---
Pre-admission Note: Pt seen in intake office. Pt is pleasant but appears tremulous and restless. Pt is able to answer assessment questions. Pt states he is here to detox mainly for Heroin IV. Pt has hx of Benzo and Methamphetamine use but reports he only uses intermittently. BP: 146/92, HR: 106, T: 98.5, RR: 18, SpO2: 97%, Pain 7/10. COWS 15. Explained policies and procedures of the unit. Pt verbalized understanding. Will admit to [facility].
[2018-03-05] MEDS ORDERED: GABA300C PO (12:51)
[2018-03-05] MEDS ORDERED: CEPH-570 PO (12:51)
[2018-03-05] MEDS ORDERED: DULO60CA45 PO (12:51)
[2018-03-05] MEDS ORDERED: MIRT15TA PO (12:51)
[2018-03-05] MEDS ORDERED: SULF1TAB48 PO (12:51)
[2018-03-05 13:00] VITALS: BP 146/92
[2018-03-05] MEDS ORDERED: DULOXETINE 60 MG CAPSULE.DR PO SCH (13:00)
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
[2018-03-05] MEDS ORDERED: CLONIDINE HCL 0.1 MG TABLET PO PRN (13:15)
[2018-03-05] MEDS ORDERED: ONDANSETRON 4 MG/2 ML VIAL IM PRN (13:15)
[2018-03-05] MEDS ORDERED: LOPERAMIDE HCL 2 MG CAPSULE PO PRN ×2 (13:15)
[2018-03-05] MEDS ORDERED: MIRALAX 17 GM POWD.PACK PO PRN (13:15)
[2018-03-05] MEDS ORDERED: HYDROXYZINE PAMOATE 25 MG CAPSULE PO PRN (13:15)
[2018-03-05] MEDS ORDERED: diphenhydrAMINE 50 MG CAPSULE PO PRN (13:15)
[2018-03-05] MEDS ORDERED: TRAZODONE 50 MG TABLET PO PRN (13:15)
[2018-03-05] MEDS ORDERED: ACETAMINOPHEN 325 MG TABLET PO PRN (13:15)
[2018-03-05] MEDS ORDERED: LORAZEPAM 1 MG TABLET PO PRN (13:15)
[2018-03-05] MEDS ORDERED: MAGNESIUM HYDROXIDE 30 ML LIQUID UDC PO PRN (13:15)
[2018-03-05] MEDS: CEphaleXIN 500 MG CAPSULE PO SCH ×3 (14:21→20:33)
[2018-03-05] MEDS: MULTIVITAMINS,THERAPEUTIC TABLET PO SCH (14:21)
[2018-03-05] MEDS: SULFAMETH/TRIMETH 800/160 MG TABLET PO SCH ×2 (14:21→20:34)
[2018-03-05] MEDS: GABAPENTIN 300 MG CAPSULE PO SCH ×3 (14:21→20:34)
[2018-03-05] MEDS: BUPRENORPHINE HCL 2 MG TAB.SUBL SL PRN ×2 (15:35→20:36)
--- NOTE | 2018-03-05 15:35 | NUR ---
Subutex PRN: Pt able to provide urine sample for UDS. Subutex PRN given as ordered for COWS 15. Will continue to monitor
[2018-03-05 16:00] VITALS: BP 142/95
--- NOTE | 2018-03-05 16:00 | NUR ---
Subutex Reassessment: Pt noted with decreased withdrawal symptoms. COWS 13. Subutex effective
[2018-03-05 16:04] LABS: *AMPHETAMINE, URINE POSITIVE (NEGATIVE); *BARBITURATE, URINE NEGATIVE (NEGATIVE); *CANNABINOID, URINE NEGATIVE (NEGATIVE); *COCCAINE, URINE NEGATIVE (NEGATIVE); *OPIATE, URINE POSITIVE (NEGATIVE); *PHENCYCLIDINE SCREEN,URINE NEGATIVE (NEGATIVE)
[2018-03-05] MEDS: LEVOTHYROXINE SODIUM 100 MCG TABLET PO SCH (16:19)
--- NOTE | 2018-03-05 19:04 | NUR ---
End of shift Note: Pt endorsed to plant operator/shift supervisor nurse. Last COWS 13. Pt noted with COWS 15 upon admission. PRN Subutex given which was effective. MD ordered to start 5-day Subutex taper tomorrow morning. Pt currently in bed attempting to get some rest. Bed in lowest position. Call light functioning and within reach. All needs attended and met.
--- NOTE | 2018-03-05 19:30 | NUR ---
START OF SHIFT Received patient awake, alert, and oriented x4 sitting in bed watching television. Patient is a 57 year old male admitted for medically supervised detox from benzos and opiates with secondary diagnoses of hypothyroidism, GERD, hip replacement, anxiety, depression, and ADHD. Per endorsement, patient will be placed on a 5 day Subutex taper tomorrow and is currently on PRN Subutex. He was given a PRN Subutex for a COWS score of 15. Patient has scabs to his right wrist and upper arm and is on bactrim and Keflex. Last COWS score was 13. Upon assessment, patient reported having chills, muscle aches, and diffuse discomfort mostly around his legs and arms. Call light is functional and within reach. Bed is in a low position and wheels locked. HOB up and bilateral side rails raised. Will continue to monitor.
[2018-03-05 20:00] VITALS: BP 130/80
[2018-03-05 20:33] LABS: BASOPHILS # (AUTO) 0.1 K/uL (0.0-8.0); BASOPHILS % (AUTO) 0.7 % (0.0-2.0); EOSINOPHILS # (AUTO) 0.1 K/uL (0.0-0.7); EOSINOPHILS % (AUTO) 0.6 % (0.0-7.0); HEMATOCRIT 27.3 % (36.7-47.1); HEMOGLOBIN 8.7 g/dL (12.5-16.3); LYMPHOCYTES # (AUTO) 1.2 K/uL (20.0-40.0); LYMPHOCYTES % (AUTO) 12.8 % (20.5-51.5); MEAN CORPUSCULAR HEMOGLOBIN 20.8 uug (23.8-33.4); MEAN CORPUSCULAR HGB CONC 32 g/dL (32.5-36.3); MEAN CORPUSCULAR VOLUME 65.1 fL (73.0-96.2); MONOCYTES # (AUTO) 0.7 K/uL (2.0-10.0); NEUTROPHILS # (AUTO) 7.5 K/uL (1.8-8.9); NEUTROPHILS % (AUTO) 78.9 % (38.5-71.5); PLATELET COUNT (AUTO) 576 K/uL (152-348); WHITE BLOOD COUNT (AUTO) 9.5 K/uL (3.6-10.2)
[2018-03-05] MEDS: MIRTAZAPINE 15 MG TABLET PO SCH (20:34)
--- NOTE | 2018-03-05 20:36 | NUR ---
PRN SUBUTEX ADMINISTRATION Patient noted with a COWS score of 12 manifested by anxiety, restlessness, fine tremors, diaphoresis, chills, and irritability. PRN Subutex 4 mg administered per MD orders and patient request. Will continue to monitor for effectiveness.
[2018-03-05 20:48] LABS: ALANINE AMINOTRANSFERASE 15 U/L (16-63); ALKALINE PHOSPHATASE 95 U/L (50-136); ASPARTATE AMINOTRANSFERASE 14 U/L (15-37); BILIRUBIN,TOTAL 0.2 mg/dL (0.2-1.0); CARBON DIOXIDE 23 mmol/L (21-32); CHLORIDE 103 mmol/L (98-107); CREATININE 0.8 mg/dL (0.6-1.3); GLUCOSE 140 mg/dL (74-106); POTASSIUM 3.2 mmol/L (3.5-5.1); TOTAL PROTEIN, SERUM 7.6 g/dL (6.4-8.2); UREA NITROGEN, BLOOD 8 mg/dL (7-18)
[2018-03-05 20:50] LABS: ETHANOL < 3 MG/DL (0-0)
[2018-03-05] MEDS ORDERED: MIRTAZAPINE 15 MG TABLET PO SCH (21:00)
[2018-03-05 21:01] LABS: THYROID STIMULATING HORMONE 0.113 mIU/mL (0.358-3.740)
--- NOTE | 2018-03-05 21:36 | NUR ---
PRN SUBUTEX REASSESSMENT Patient reports having symptomatic relief from withdrawal symptoms including anxiety, restlessness, and chill. PRN Subutex noted to be effective. Call light is functional and within reach. Will continue to monitor.
[2018-03-05] MEDS ORDERED: POTASSIUM CHLORIDE 20 MEQ TAB.PRT.SR PO ONE (21:45)
--- NOTE | 2018-03-06 | NUR ---
VITAL SIGNS REFUSED Patient noted lying in bed with eyes closed and with even, unlabored respirations. Vital signs refused. HOB flat and bilateral side rails raised for safety. No s/s of distress noted at this time. Call light is functional and within reach. Will continue to monitor.
[2018-03-06] MEDS ORDERED: 5 DAY TAPER BUPRENORPHINE -SERENITY PROTOCOL SL PRN (06:00)
[2018-03-06] MEDS: LEVOTHYROXINE SODIUM 100 MCG TABLET PO SCH (06:53)
--- NOTE | 2018-03-06 07:29 | NUR ---
END OF SHIFT Patient is noted lying in bed with eyes closed and even, unlabored respirations. Patient is a 57 year old male admitted for medically supervised detox from benzos and opiates with secondary diagnoses of hypothyroidism, GERD, hip replacement, anxiety, depression, and ADHD. During the shift, the patient reported having anxiety, restlessness, fine tremors, diaphoresis, chills, and irritability at the beginning of the shift for which PRN Subutex was administered and was effective. Patient slept for about 8 hours during the night. Last COWS score was 12 taken at 2000. Call light is functional and within reach. HOB is flat and bilateral side rails raised. All safety measures in place. Endorsed to oncoming AM nurse.
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
[2018-03-06 08:00] VITALS: BP 145/95
[2018-03-06] MEDS: MULTIVITAMINS,THERAPEUTIC TABLET PO SCH (08:26)
[2018-03-06] MEDS: CEphaleXIN 500 MG CAPSULE PO SCH ×4 (08:26→20:42)
[2018-03-06] MEDS: GABAPENTIN 300 MG CAPSULE PO SCH ×4 (08:27→20:42)
[2018-03-06] MEDS: BUPRENORPHINE HCL 2 MG TAB.SUBL SL SCH ×4 (08:27→20:43)
[2018-03-06] MEDS: DULOXETINE 60 MG CAPSULE.DR PO SCH (08:27)
[2018-03-06] MEDS: SULFAMETH/TRIMETH 800/160 MG TABLET PO SCH ×2 (08:27→20:42)
--- NOTE | 2018-03-06 08:27 | NUR ---
COWS ASSESSMENT Patient presented with labile facial expression, anxious fatigue, anhedonia, dilated pupil, bilateral hand tremors, body aches, stomach cramps, yawning. COWS score noted-12. Patient was given his schedule medications. Will cont to monitor.
[2018-03-06] MEDS ORDERED: TUBERCULIN,PURIF.PROT.DERIV. 5 TU/0.1 ML TEST ID ONE (09:00)
[2018-03-06 12:00] VITALS: BP 125/87
--- NOTE | 2018-03-06 12:33 | NUR ---
Therapist prompted client to attend group therapy.
--- NOTE | 2018-03-06 12:59 | NUR ---
COWS ASSESSMENT Patient continues to exhibiting s/s of withdrawal such as anxiety, agitation, restless, chills, fatigue, anhedonia, moderately dilated pupil, bilateral hand tremors, stomach cramps. COWS score noted-10. Patient was given his schedule medications. Will cont to monitor.
[2018-03-06 16:00] VITALS: BP 127/81
--- NOTE | 2018-03-06 19:19 | NUR ---
END OF SHIFT NOTE Gave report to night nurse, 57 year old male admitted for Benzo/Meth/Heroin withdrawal. Patient continues with Subutex taper tolerating well. Patient presented with bilateral hand tremors, flat facial expression, anxious, agitated, anhedonia, fatigue, yawning, chills, difficulty sitting still. Patient was given his scheduled mediations no PRN were administered. Patient rested most of the shift and did not attend any group activities. Encourage patient to attend groups and activities to learn new coping skills. patient verbalized understanding. patient continues with Po antibiotics.Encourage PO fluids as tolerated. Vital signs WNL. Last COWS score was 12 at 1600. Patient denies any SI/HI. All needs attended. Endorse patient to night nurse in stable condition.
--- NOTE | 2018-03-06 19:30 | NUR ---
Start of shift note Received report from day shift nurse. Patient is a 57 year old male admitted for Opiate withdrawal. Patient is on 1st day of his 5 day Subutex taper. Patient is on Bactrim and Keflex for right wrist scab and right arm scab. Patient did not require PRN medication. Last COWS 12. Patient in room. Alert and oriented x 4. Patient present with eye avoidant, disheveled and difficulty concentrating. Patient reports anxiety, cold and hot sweats, flushing, runny nose, watery eyes and abdominal cramping. He was nauseated earlier but no emesis. Safety measures in place. Will continue to monitor.
[2018-03-06 20:00] VITALS: BP_SYST 123; BP_SYST 135; BP_DIAS 62; BP_DIAS 83
[2018-03-06] MEDS: IBUPROFEN 600 MG TABLET PO PRN (20:42)
[2018-03-06] MEDS: MIRTAZAPINE 15 MG TABLET PO SCH (20:42)
--- NOTE | 2018-03-06 20:42 | NUR ---
PRN Motrin administration Patient c/o generalized body aches. Will monitor for effectiveness
--- NOTE | 2018-03-06 21:42 | NUR ---
PRN Motrin re-assessment Patient states Motrin is helpful and effective. Pain is lessened
[2018-03-07] VITALS: BP 130/72
[2018-03-07 04:00] VITALS: BP 128/74
[2018-03-07] MEDS: LEVOTHYROXINE SODIUM 100 MCG TABLET PO SCH (06:48)
--- NOTE | 2018-03-07 07:02 | NUR ---
End of shift note Monitored patient throughout shift. Patient is on Bactrim and Keflex for right wrist and right arm scab with no adverse reaction noted. Patient alert and oriented x 4. Patient reported anxiety, cold and hot sweats, flushing, runny nose, watery eyes, nauseated and abdominal cramping. Patient is withdrawn. Scheduled medication and taper given as ordered. He stays in the room most of the shift and did not attend groups. Will continue to encourage. Patient was given PRN Motrin for pain, effective. Safety measures in place. Will continue to monitor. Slept 7 hours. Fluid intake 1,650 ml. Voided x 2. No BM. Last COWS 13.
--- NOTE | 2018-03-07 07:30 | NUR ---
START OF SHIFT NOTE Received report from night nurse, 57 year old male admitted for Benzo(Xanax) Meth, Heroin(Opioids) withdrawal. Patient continues with 5 days Subutex taper tolerating well. Per endorsement patient received PRN Motrin effective per night nurse, slept for 7 hours, last COWS-13. Received patient alert awake oriented x4 resting in his room. Educated patient regarding plan of the day and medications regimen. Patient verbalized understanding. All safety measures in place. Will cont with plan of care.
[2018-03-07 08:00] VITALS: BP 131/94
[2018-03-07] MEDS: MULTIVITAMINS,THERAPEUTIC TABLET PO SCH (08:39)
[2018-03-07] MEDS: GABAPENTIN 300 MG CAPSULE PO SCH ×4 (08:39→20:12)
[2018-03-07] MEDS: DULOXETINE 60 MG CAPSULE.DR PO SCH (08:39)
[2018-03-07] MEDS: SULFAMETH/TRIMETH 800/160 MG TABLET PO SCH ×2 (08:39→20:12)
[2018-03-07] MEDS: CEphaleXIN 500 MG CAPSULE PO SCH ×4 (08:39→20:12)
[2018-03-07] MEDS: BUPRENORPHINE HCL 2 MG TAB.SUBL SL SCH ×3 (08:40→20:15)
[2018-03-07 09:39] LABS: CREATININE 0.9 mg/dL (0.6-1.3); POTASSIUM 4.1 mmol/L (3.5-5.1)
[2018-03-07 10:08] LABS: BASOPHILS # (AUTO) 0.1 K/uL (0.0-8.0); BASOPHILS % (AUTO) 1.5 % (0.0-2.0); EOSINOPHILS # (AUTO) 0.2 K/uL (0.0-0.7); HEMATOCRIT 28.3 % (36.7-47.1); HEMOGLOBIN 8.9 g/dL (12.5-16.3); LYMPHOCYTES # (AUTO) 1.3 K/uL (20.0-40.0); LYMPHOCYTES % (AUTO) 23.3 % (20.5-51.5); MEAN CORPUSCULAR HEMOGLOBIN 20.6 uug (23.8-33.4); MEAN CORPUSCULAR HGB CONC 31 g/dL (32.5-36.3); MEAN CORPUSCULAR VOLUME 65.5 fL (73.0-96.2); MONOCYTES # (AUTO) 0.3 K/uL (2.0-10.0); MONOCYTES % (AUTO) 5.6 % (0.0-11.0); NEUTROPHILS # (AUTO) 3.6 K/uL (1.8-8.9); NEUTROPHILS % (AUTO) 65.6 % (38.5-71.5); PLATELET COUNT (AUTO) 524 K/uL (152-348); RED BLOOD CELL COUNT(AUTO) 4.32 MIL/uL (4.06-5.63); WHITE BLOOD COUNT (AUTO) 5.5 K/uL (3.6-10.2)
[2018-03-07 10:54] LABS: EOSINOPHILS % (MANUAL) 1 % (0-8); LYMPHOCYTES % (MANUAL) 26 % (20-40); MONOCYTES % (MANUAL) 2 % (2-10); NEUTROPHILS % (MANUAL) 71 % (42-75)
[2018-03-07 12:00] VITALS: BP 111/64
--- NOTE | 2018-03-07 12:10 | NUR ---
Therapist prompted client to attend group therapy sessions.
[2018-03-07 14:07] LABS: HEPATITIS B SURFACE AG Negative (Negative)
[2018-03-07 16:00] VITALS: BP 120/71
[2018-03-07] MEDS: FERROUS SULFATE 325 MG TABEC PO SCH (17:07)
[2018-03-07] MEDS: ASCORBIC ACID 500 MG TABLET PO SCH (17:16)
--- NOTE | 2018-03-07 19:11 | NUR ---
END OF SHIFT NOTE Gave report to night nurse, 57 year old male admitted for Benzo/Meth/Heroin withdrawal. Patient continues with Subutex taper tolerating well. Patient presented with anxiety, agitation, chills, anhedonia, fatigue, difficulty sitting still. During shift he received his scheduled mediations. No PRN'S were administered. Patient attended groups and activities. Patient continues with Po antibiotics. Encourage PO fluids as tolerated. Vital signs WNL. Last COWS score was 12 at 1600. Patient denies any SI/HI. All needs attended. Endorse patient to night nurse in stable condition.
--- NOTE | 2018-03-07 19:30 | NUR ---
Start of shift note Received report from day shift nurse. Patient is a 57 year old male admitted for Opiate withdrawal. Patient is on 2nd day of his 5 day Subutex taper. Patient is on Bactrim and Keflex for right wrist scab and right arm scab. Patient did not require PRN medication. Last COWS 12. Patient in room. Alert and oriented x 4. Patient present with eye avoidant, disheveled and difficulty concentrating. Patient reports anxiety, cold and hot sweats, flushing, runny nose, abdominal cramping and back pain. Safety measures in place. Will continue to monitor.
[2018-03-07 20:00] VITALS: BP_SYST 113; BP_SYST 135; BP_DIAS 65; BP_DIAS 72
[2018-03-07] MEDS: MIRTAZAPINE 15 MG TABLET PO SCH (20:12)
[2018-03-07] MEDS: IBUPROFEN 600 MG TABLET PO PRN (20:13)
--- NOTE | 2018-03-07 20:13 | NUR ---
PRN Motrin administration Patient c/o back pain. Will monitor for effectiveness
--- NOTE | 2018-03-07 21:13 | NUR ---
PRN Motrin re-assessment Patient states Motrin is helpful and effective
[2018-03-08] VITALS: BP 120/70
[2018-03-08 04:00] VITALS: BP 116/74
[2018-03-08] MEDS: LEVOTHYROXINE SODIUM 100 MCG TABLET PO SCH (07:07)
--- NOTE | 2018-03-08 07:14 | NUR ---
End of shift note Monitored patient throughout shift. Patient is on Bactrim and Keflex for right wrist scab and right arm scab with no adverse reaction. Patient in the room most of the shift . Alert and oriented x 4. Patient presented with eye avoidant, disheveled and difficulty concentrating. Patient reported anxiety, cold and hot sweats, flushing, runny nose, abdominal cramping and back pain. Scheduled medication and taper given , tolerated well. Patient was given PRN Motrin for back pain, effective. Safety measures in place. Will continue to monitor. Slept 8 hours. Fluid intake 355 ml . Voided x 1. No BM. Last COWS 12
--- NOTE | 2018-03-08 07:30 | NUR ---
START OF SHIFT Pt 57 y/o male admitted for opiate withdrawal. Pt received in room on bed with eyes closed resting, but arousable to name. Pt alert and oriented to name, place, and time. Perrla. Skin warm and moist to touch. Respirations even and unlabored. Appears disheveled. Clothes and food wrappings scattered throughout the room. Encouraged to maintain hygiene. cows=12 @0800. Anxious and restless. Pressured speech. Complaints of generalized body aches. Bilateral hand tremors noted. Intermittent perspiration / chills. It was reported that pt slept for 8 hours last night. Pt is on a 5 day subutex taper and is on day 3. Bed on lowest position with side rails x2 up for safety. Call light within reach.
[2018-03-08 08:00] VITALS: BP 128/88
[2018-03-08] MEDS: ASCORBIC ACID 500 MG TABLET PO SCH ×3 (08:47→17:15)
[2018-03-08] MEDS: FERROUS SULFATE 325 MG TABEC PO SCH ×3 (08:47→17:15)
[2018-03-08] MEDS: GABAPENTIN 300 MG CAPSULE PO SCH ×4 (08:47→20:20)
[2018-03-08] MEDS: DULOXETINE 60 MG CAPSULE.DR PO SCH (08:47)
[2018-03-08] MEDS: SULFAMETH/TRIMETH 800/160 MG TABLET PO SCH ×2 (08:47→20:20)
[2018-03-08] MEDS: CEphaleXIN 500 MG CAPSULE PO SCH ×4 (08:47→20:20)
[2018-03-08] MEDS: MULTIVITAMINS,THERAPEUTIC TABLET PO SCH (08:48)
[2018-03-08] MEDS: METHOCARBAMOL 750 MG TABLET PO PRN ×2 (08:50→20:20)
[2018-03-08] MEDS: IBUPROFEN 600 MG TABLET PO PRN ×2 (08:50→20:20)
[2018-03-08] MEDS: ONDANSETRON ODT 4 MG TAB.RAPDIS SL PRN (08:51)
--- NOTE | 2018-03-08 08:55 | NUR ---
PRN ROBAXIN MOTRIN ZOFRAN Complaints of nausea. Zofran ODT prn per MD order given. Complaints of generalized body aches 6/10. Robaxin po prn per MD order given. Complaints of lower back pain 6/10. Motrin po prn per MD order given.
[2018-03-08] MEDS ORDERED: BUPRENORPHINE HCL 2 MG TAB.SUBL SL SCH (09:00)
--- NOTE | 2018-03-08 09:55 | NUR ---
PRN ROBAXIN MOTRIN ZOFRAN EVAL Pt states body aches 3/10. Pt states lower back pain 3/10. PT denies any nausea or vomit episode.
--- NOTE | 2018-03-08 10:08 | NUR ---
Therapist prompted client to attend group therapy.
[2018-03-08 12:00] VITALS: BP 113/68
[2018-03-08] MEDS: BUPRENORPHINE HCL 2 MG TAB.SUBL SL SCH ×2 (14:25→20:21)
[2018-03-08 16:00] VITALS: BP 111/80
--- NOTE | 2018-03-08 19:03 | NUR ---
END OF SHIFT Pt 57 y/o male admitted for opiate withdrawal. Pt alert and oriented to name, place, and time. Perrla. Skin warm and moist to touch. Respirations even and unlabored. Appears disheveled. Clothes and empty drink bottles scattered throughout the room. Encouraged to maintain hygiene. Cows= 10@1600. Anxious and restless. Irritable. Bilateral hand tremors noted. Intermittent perspiration. Complaints of generalized body aches. Complaints of generalized discomfort. Mostly isolative to room with minimal peer interaction. Pt did attend group activity. Pt is on a 5 day Subutex taper and is on day 3. Bed on lowest position with side rails x 2 up for safety. Call light within reach.
--- NOTE | 2018-03-08 19:30 | NUR ---
Start of shift note Received report from day shift nurse. Patient is a 57 year old male admitted for Opiate withdrawal. Patient is on 3rd day of his 5 day Subutex taper. Patient is on Bactrim and Keflex for right wrist scab and right arm scab. Patient was given PRN Motrin, Robaxin and Zofran . Last COWS 11. Patient in room. Alert and oriented x 4. Patient present with flat affect, difficulty concentrating , anhedonia and disheveled. Patient reports anxiety, restlessness, hot and cold sweats, runny nose, abdominal cramping , muscle aches and back pain. Safety measures in place. Will continue to monitor.
[2018-03-08 20:00] VITALS: BP 110/62
[2018-03-08] MEDS: MIRTAZAPINE 15 MG TABLET PO SCH (20:20)
--- NOTE | 2018-03-08 20:20 | NUR ---
PRN Motrin and Robaxin administration Patient c/o muscle aches and back pain. Will monitor for effectiveness
--- NOTE | 2018-03-08 21:20 | NUR ---
PRN Motrin and Robaxin re-assessment Patient states Motrin and Robaxin helpful and effective. Pain is lessened
[2018-03-09] VITALS: BP 118/59
--- NOTE | 2018-03-09 07:09 | NUR ---
End of shift note Patient is on Bactrim and Keflex for right wrist scab and right arm scab with no adverse reaction. Patient alert and oriented x 4. Patient presented with flat affect, difficulty concentrating , anhedonia and disheveled. Patient reported anxiety, cold and hot sweats, flushing, runny nose, abdominal cramping , muscle aches and back pain. Scheduled taper ad medication given, tolerated well. Patient was given PRN Robaxin and Motrin, effective. Patient stays in the room most of the shift. Safety measures in place. Will continue to monitor. Slept 9 hours. Fluid intake 500 ml. Voided x 1. BM x 1. Last COWS 11.
--- NOTE | 2018-03-09 07:30 | NUR ---
START OF SHIFT NOTE Received report from night nurse, 57 year old male admitted for Benzo(Xanax) Meth, Heroin(Opioids) withdrawal. Patient continues with 5 days Subutex taper tolerating well. Per endorsement patient received PRN Motrin, Robaxin effective per night nurse, slept for 9 hours, last COWS-11. Received patient alert awake oriented x4 watching TV. Patient presented with flat facial expressions, unkempt room, empty bottles on the floor, lower back pain, chills. Educated patient regarding plan of the day and medications regimen. Patient verbalized understanding. All safety measures in place. Will cont with plan of care.
[2018-03-09] MEDS: LEVOTHYROXINE SODIUM 100 MCG TABLET PO SCH (07:34)
[2018-03-09 08:00] VITALS: BP 124/80
[2018-03-09] MEDS: FERROUS SULFATE 325 MG TABEC PO SCH ×3 (08:17→17:20)
[2018-03-09] MEDS: SULFAMETH/TRIMETH 800/160 MG TABLET PO SCH ×2 (08:17→21:46)
[2018-03-09] MEDS: CEphaleXIN 500 MG CAPSULE PO SCH ×4 (08:17→21:46)
[2018-03-09] MEDS: DULOXETINE 60 MG CAPSULE.DR PO SCH (08:17)
[2018-03-09] MEDS: ASCORBIC ACID 500 MG TABLET PO SCH ×3 (08:17→17:20)
[2018-03-09] MEDS: MULTIVITAMINS,THERAPEUTIC TABLET PO SCH (08:17)
[2018-03-09] MEDS: GABAPENTIN 300 MG CAPSULE PO SCH ×4 (08:17→21:46)
[2018-03-09] MEDS: BUPRENORPHINE HCL 2 MG TAB.SUBL SL SCH ×3 (08:18→21:46)
[2018-03-09 12:00] VITALS: BP 107/65
--- NOTE | 2018-03-09 12:07 | NUR ---
Therapist prompted client to attend twice daily group therapy sessions.
[2018-03-09 16:00] VITALS: BP 104/61
--- NOTE | 2018-03-09 19:30 | NUR ---
END OF SHIFT NOTE Gave report to night nurse, 57 year old male admitted for Benzo/Meth/Heroin withdrawal. Patient continues with Subutex taper tolerating well. Patient presented with irritable, anxious, agitation, chills, anhedonia, fatigue, bilateral hand tremors, poor oral hygiene. During shift he received his scheduled mediations. No PRN'S were administered. Patient attended groups and activities. Patient continues with Po antibiotics. Encourage PO fluids as tolerated. Vital signs WNL. Last COWS score was at 1600. Patient denies any SI/HI. All needs attended. Endorse patient to night nurse in stable condition.
[2018-03-09 20:00] VITALS: BP 105/63
--- NOTE | 2018-03-09 20:00 | NUR ---
Start of Shift Patient is noted to be anxious, isolative and melancholic. He stated, I dont see the need to interact that much. Being alone gives me time to think. Patient was educated regarding coping skills. Patient also observed to be easily agitated, has bilateral hand tremors, piloerection and c/o intermittent chills and hot flushes. No PRNs were administered per dayshift nurse. Patient appears disheveled and is also educated regarding importance of maintaining a proper hygiene. Fall, universal, seizure and safety prec in place. Call light within reach. Last COWS=10. Will continue to monitor.
[2018-03-09] MEDS: MIRTAZAPINE 15 MG TABLET PO SCH (21:46)
[2018-03-09] MEDS: MAG HYDROX/AL HYDROX/SIMETH 30 ML LIQUID UDC PO PRN (21:47)
--- NOTE | 2018-03-09 21:48 | NUR ---
PRN Maalox Patient c/o heartburn. Administered Maalox 30 ml PO. Will reassess.
--- NOTE | 2018-03-09 22:48 | NUR ---
Maalox reassess Patient stated that his hyperacidity was relieved.
[2018-03-10] VITALS: BP 114/65
--- NOTE | 2018-03-10 04:00 | NUR ---
COWS Deferred Patient is asleep on bed. COWS deferred per MD order. RR=14.
[2018-03-10] MEDS: LEVOTHYROXINE SODIUM 100 MCG TABLET PO SCH (06:41)
--- NOTE | 2018-03-10 07:22 | NUR ---
End of Shift Patient continues to have intermittent anxiety and is withdrawn for most of his waking hours during the shift. He is observed to be easily irritated and avoids conversation. Patient also continues to have bilateral hand tremors and c/o intermittent chills and hot flushes. PRN Maalox was administered during the shift and it was effective. Patient continues to be disheveled and unkempt and with coffee stains on his shirt. He was encouraged to take a shower this morning. Fall, universal, seizure and safety prec in place. Call light within reach. Last COWS=8 and slept for 8 hours. Endorsed to AM shift nurse for continuity of care.
--- NOTE | 2018-03-10 07:30 | NUR ---
Start of Shift Notes: Received endorsement from night nurse. Patient is a 57 year old male admitted for ETOH and BZO withdrawal who was placed on a 5-day Subutex taper as ordered. No adverse reactions noted. Per night report, patient was given PRN Maalox during the night. Last 8/ 8. Slept for a total of 8 hours. Patient was received in his room. Alert and oriented x 4. He is unshaven, disheveled with poor regards to hygiene. He is noted with dirty fingernails and food scattered all over the bed. Encouraged patient to maintain his personal hygiene and space. He is noted with facial flushing, intermittent perspiration, gross tremors, anxiety, agitation and generalized discomfort. Educated patient on his current plan of care for the day and his medication regimen. Encourage oral fluid intake and encouraged group participation to learn new skills to prevent relapse. All needs met and attended. Will continue to monitor closely.
[2018-03-10 08:00] VITALS: BP 129/86
[2018-03-10] MEDS ORDERED: BUPRENORPHINE HCL 2 MG TAB.SUBL SL SCH (09:00)
[2018-03-10] MEDS: CEphaleXIN 500 MG CAPSULE PO SCH ×4 (09:02→21:03)
[2018-03-10] MEDS: DULOXETINE 60 MG CAPSULE.DR PO SCH (09:02)
[2018-03-10] MEDS: GABAPENTIN 300 MG CAPSULE PO SCH ×4 (09:02→21:03)
[2018-03-10] MEDS: SULFAMETH/TRIMETH 800/160 MG TABLET PO SCH ×2 (09:02→21:02)
[2018-03-10] MEDS: FERROUS SULFATE 325 MG TABEC PO SCH ×3 (09:02→17:03)
[2018-03-10] MEDS: MULTIVITAMINS,THERAPEUTIC TABLET PO SCH (09:02)
[2018-03-10] MEDS: ASCORBIC ACID 500 MG TABLET PO SCH ×3 (09:07→17:03)
[2018-03-10 12:00] VITALS: BP 107/72
[2018-03-10] MEDS ORDERED: ASCO500T9 PO (14:12)
[2018-03-10] MEDS ORDERED: DULO60CA45 PO (14:12)
[2018-03-10] MEDS ORDERED: METH-406 PO (14:12)
[2018-03-10] MEDS ORDERED: MIRT15TA PO (14:12)
[2018-03-10] MEDS ORDERED: SULF1TAB48 PO (14:12)
[2018-03-10] MEDS ORDERED: LEVO100T10 PO (14:12)
[2018-03-10] MEDS ORDERED: GABA300C PO (14:12)
[2018-03-10] MEDS ORDERED: CLON0.1T14 PO (14:12)
[2018-03-10] MEDS ORDERED: CEPH-570 PO (14:12)
[2018-03-10] MEDS ORDERED: FERR325T28 PO (14:12)
[2018-03-10 16:00] VITALS: BP 109/72
--- NOTE | 2018-03-10 19:18 | NUR ---
End of Shift Notes: Patient completed his 5-day Subutex taper as ordered. No adverse reactions noted. VS monitored closely. No significant abnormalities noted. Withdrawal symptoms were closely monitored. Initial COWS 6/CIWA 7, patient presented with gross tremors, anxiety, agitation, intermittent perspiration, restlessness, chills, hot flashes, and generalized discomfort. Last COWS 6/CIWA 7. Patient verbalizes that Subutex has been effective in reducing his withdrawal symptoms. Patient on Keflex and Bactrim as ordered. No adverse reactions noted. Appetite good. Participated in group and activities due to his withdrawal symptoms. All needs met and attended. Patient will be discharging to [facility] tomorrow.
--- NOTE | 2018-03-10 19:30 | NUR ---
START OF SHIFT Received patient awake, alert, and oriented x4 lying in bed watching TV. Patient is a 57 year old male admitted for medically supervised detox from opiates and benzos with secondary diagnoses of hypothyroidism, GERD, anxiety, depression, hip, and ADHD. Per endorsement patient has completed a 5 day taper of Subutex and is to be DCd tomorrow. Patient continues on Bactrim and Keflex. His last COWS score is 6 and last CIWA is 7. No PRNs given on AM shift. All safety measures in place. HOB and bilateral side rails raised. Bed is in low position with wheels locked. Call light is functional and within reach. Will continue to monitor.
[2018-03-10 20:00] VITALS: BP 114/73
[2018-03-10] MEDS: MIRTAZAPINE 15 MG TABLET PO SCH (21:02)
[2018-03-10] MEDS: MAG HYDROX/AL HYDROX/SIMETH 30 ML LIQUID UDC PO PRN (21:22)
[2018-03-10] MEDS: ONDANSETRON ODT 4 MG TAB.RAPDIS SL PRN (21:22)
--- NOTE | 2018-03-10 21:22 | NUR ---
PRN MAALOX AND ZOFRAN ADMINISTRATION Patient reported having a heartburn and nausea with no episodes of emesis. PRN meds Maalox 30 mL and zofran 4 mg SL given per MD orders and patient request. Will continue to monitor and reassess for effectiveness.
--- NOTE | 2018-03-10 22:22 | NUR ---
PRN MAALOX AND ZOFRAN REASSESSMENT Patient reported an improvement in symptoms of nausea and heartburn. PRN meds Maalox and Zofran noted to be effective. Will continue to monitor.
--- NOTE | 2018-03-11 | NUR ---
VITAL SIGNS REFUSED Patient noted lying in bed with eyes closed and even, unlabored respirations. Vital signs refused. HOB flat and bilateral side rails raised. Call light is functional and within reach. All safety measures in place. Will continue to monitor.
[2018-03-11] MEDS: FERROUS SULFATE 325 MG TABEC PO SCH (07:05)
[2018-03-11] MEDS: LEVOTHYROXINE SODIUM 100 MCG TABLET PO SCH (07:06)
[2018-03-11] MEDS: ASCORBIC ACID 500 MG TABLET PO SCH (07:06)
--- NOTE | 2018-03-11 07:30 | NUR ---
END OF SHIFT Patient is noted lying in bed with eyes closed and even, unlabored respirations. Patient is a 57 year old male admitted for medically supervised detox from opiates and benzos with secondary diagnoses of hypothyroidism, GERD, anxiety, depression, hip, and ADHD. During the shift, the patient was compliant with therapeutic plan and medication regimen. Patient reported having heartburn and nausea for which Maalox and Zofran were given and were effective. Patient slept for about 9 hours during the night. Increased fluid intake was encouraged with morning medications. Last COWS score is 6 and last CIWA is 6. HOB flat and bilateral side rails raised. All safety measures in place. Bed is in a low position with wheels locked. Call light is functional and within reach. Endorsed to oncoming AM nurse.
--- NOTE | 2018-03-11 07:35 | NUR ---
Start of Shift Notes: Received endorsement from night nurse. Patient is a 57 year old male admitted for ETOH and BZO withdrawal who was placed on a 5-day Subutex taper as ordered. No adverse reactions noted. Per night report, patient was given PRN Maalox and Zofran during the night. Last COWS 6/CIWA 6. Slept for a total of 9 hours. Patient was received in his room. Alert and oriented x 4. He is unshaven, disheveled with poor regards to hygiene. He is noted with dirty fingernails and stained shirt. Encouraged patient to maintain his personal hygiene and space. He is noted with facial flushing, anxiety and nervousness due to the discharge process. Educated patient on his medication regimen and the discharge process. He verbalized good understanding. Encourage oral fluid intake. All needs met and attended. Will continue to monitor closely.
[2018-03-11 08:00] VITALS: BP 117/80
[2018-03-11] MEDS ORDERED: NALO4SPR NS (08:38)
[2018-03-11] MEDS: CEphaleXIN 500 MG CAPSULE PO SCH (08:43)
[2018-03-11] MEDS: GABAPENTIN 300 MG CAPSULE PO SCH (08:43)
[2018-03-11] MEDS: DULOXETINE 60 MG CAPSULE.DR PO SCH (08:43)
[2018-03-11] MEDS: MULTIVITAMINS,THERAPEUTIC TABLET PO SCH (08:43)
[2018-03-11] MEDS: SULFAMETH/TRIMETH 800/160 MG TABLET PO SCH (08:43)
--- NOTE | 2018-03-11 09:35 | NUR ---
Discharged: Patient education provided regarding patient's discharge instructions. He verbalized good understanding of all teachings. All clothing, medications and valuables were returned to the patient. Denies S/I or H/I. No AV hallucinations noted. COWS 6/CIWA 6. VS stable. Picked up by [facility] to be transported to [facility].
== END 2018-03-11 09:35 | disposition other institution (70) | DRG 895 ==
LOC: SRC 12:16
PROVIDERS: ADMIT Internal Medicine Addiction Medicine; ATTEND Internal Medicine Addiction Medicine
PROC: HZ2ZZZZ Detoxification Services for Substance Abuse Treatment (ICD-10-PCS; principal; 2018-03-05)
PROC: HZ41ZZZ Group Counseling for Substance Abuse Treatment, Behavioral (ICD-10-PCS; 2018-03-06)
PROC: HZ31ZZZ Individual Counseling for Substance Abuse Treatment, Behavioral (ICD-10-PCS; 2018-03-08)
DX: F11.23 Opioid dependence with withdrawal (principal); F33.2 Major depressive disorder, recurrent severe without psychotic features; F13.230 Sedative, hypnotic or anxiolytic dependence with withdrawal, uncomplicated; Z96.642 Presence of left artificial hip joint; F41.0 Panic disorder [episodic paroxysmal anxiety]; G47.00 Insomnia, unspecified; E03.9 Hypothyroidism, unspecified; G89.29 Other chronic pain; M54.5 Low back pain; K21.9 Gastro-esophageal reflux disease without esophagitis; F17.210 Nicotine dependence, cigarettes, uncomplicated; F41.1 Generalized anxiety disorder; F90.9 Attention-deficit hyperactivity disorder, unspecified type; Z59.1 Inadequate housing; D50.9 Iron deficiency anemia, unspecified; F15.23 Other stimulant dependence with withdrawal; Z80.0 Family history of malignant neoplasm of digestive organs; Z80.3 Family history of malignant neoplasm of breast; Z82.49 Family history of ischemic heart disease and other diseases of the circulatory system; Z79.899 Other long term (current) drug therapy
CPT/HCPCS: 36415; 70030-TC; 80307; 80324; 80361; 83550; 83735; 84443; 85025; 86580; 86592; 86705; 86803; 87340; 87806; G0480; Q0162